=== PATIENT | male | born 1950 | race Caucasian/White ===

== ENCOUNTER → 2016-11-24 | Day surgery (SDC) | payer MEDICARE ==
[~2016-11-24] MED LIST: ACETAMINOPHEN/HYDROcodone 325 MG/5 MG TAB ONE; BUPIVACAINE/EPINEPHRINE 0.5% 50 ML VIAL ONE; KETOROLAC TROMETHAMINE 30 MG/ML (IVP) VIAL ONE; MIDAZOLAM HCL 2 MG/2 ML VIAL ONE; ONDANSETRON HCL 4 MG/2 ML VIAL IV PUSH ONE; PROPOFOL 200 MG/20 ML AMP IV ONE; TRIAMCINOLONE ACETONIDE 40 MG/ML VIAL ONE; ceFAZolin INJ 1,000 MG VIAL ONE
--- NOTE | 2016-11-24 09:45 | MP ---
cc: MATTHEW AGUILAR M.D. DATE OF SURGERY 11/24/2016 PREOPERATIVE DIAGNOSIS Right knee complex medial meniscus tear. POSTOPERATIVE DIAGNOSIS Right knee complex medial and complex lateral meniscal tears. PROCEDURE Right knee arthroscopic partial medial and partial lateral meniscectomy. ANESTHESIA General SURGEON Matthew Aguilar MD ESTIMATED BLOOD LOSS Minimum SPECIMEN Fragments discarded. COMPLICATIONS None known. INDICATION Ihsan Maldonado is a 66-year-old male with persistent right knee pain and positive MRI scan who now presents for arthroscopic surgery. The risks and benefits were thoroughly discussed in detail and informed consent was obtained. PROCEDURE The patient was brought to the operating room. He was placed under general anesthetic. The right lower extremities was prepped and draped in the usual sterile fashion. IV antibiotics were given and time-out was completed. Marcaine was injected about the inferolateral portal, portal made a blunt trocar was used as a cannula and an effusion was noted. The needle was insufflated with saline. Patellofemoral joint appeared normal. The notch showed a normal-appearing ACL although there was some erythema within the knee. The medial compartment showed a complex tear involving the body and the posterior horn of the medial meniscus and some chondromalacia on the weightbearing portion of the medial femoral condyle. We made our medial based arthroscopic portal. We proceeded with arthroscopic partial medial meniscectomy using a combination of basket forceps and arthroscopic shaver, smoothing and contouring. We visualize the lateral compartment and also found there to be a tear involving primarily the posterior horn where there was a root tear that was 60% the depth of the meniscus. As well, there was calcification of the meniscus and a frayed meniscus around the posterior horn and body. We proceeded with an arthroscopic partial lateral meniscectomy using a combination of basket forceps and arthroscopic shaver, smoothing and contouring. We switched over a switching stick to gain the appropriate angle. We did a follow-up photograph here. We switched back over switching stick, did a repeat diagnostic arthroscopy confirming no loose bodies. We did use electrocautery as well as there was some synovial bleeding. Repeat diagnostic arthroscopy revealed no loose bodies. The arthroscopic equipment was removed. We injected Marcaine and additionally we injected Kenalog because we know the calcification within the knee. The arthroscopic equipment was removed. We closed with Steri-Strips, a sterile dressing applied. Vijay wrap applied. The patient was awoken and returned to the recovery room in stable condition. MD MIGDALIA Selby/PARAMJIT /8:34 AM /9:36 AM
== END | disposition home or self-care (01) ==
LOC: ESDC 06:22
PROVIDERS: ATTEND Orthopaedic Surgery Sports Medicine
DX: S83.231A Complex tear of medial meniscus, current injury, right knee, initial encounter (principal); S83.271A Complex tear of lateral meniscus, current injury, right knee, initial encounter
CPT/HCPCS: 01400; 29880; J0690; J1885; J2250; J2405; J3010; J3301